=== PATIENT | female | born 1940 | race Two or more races ===

== ENCOUNTER 2025-04-07 12:00 | Emergency (ER) | payer OTHER ==
[~2025-04-07] VITALS: Ht 165.1 cm; Wt 86.2 kg
[2025-04-07] MEDS ORDERED: AVAPRO300 MG PO (15:31)
[2025-04-07] MEDS ORDERED: SYNTHROID112 MCG PO (15:31)
[2025-04-07] MEDS ORDERED: METFORMIN HCL1000 M2 (15:32)
[2025-04-07] MEDS ORDERED: KETOROLAC TROMETHAMINE 30 MG VIAL IV ONE (16:00)
[2025-04-07] MEDS ORDERED: DIPHENHYDRAMINE HCL 50 MG/ML VIAL 1ML IV ONE (16:00)
[2025-04-07] MEDS ORDERED: 0.9 % SODIUM CHLORIDE 1,000 ML IV SCH (16:00)
[2025-04-07] MEDS ORDERED: METOCLOPRAMIDE HCL 10 MG in DEXTROSE 5 % IN WATER 50 ML IV ONE (16:00)
[2025-04-07] MEDS ORDERED: KETOROLAC TROMETHAMINE 30 MG VIAL ONE (17:54)
[2025-04-07] MEDS ORDERED: DIPHENHYDRAMINE HCL 50 MG/ML VIAL 1ML ONE (17:54)
[2025-04-07] MEDS ORDERED: METOCLOPRAMIDE HCL 5 MG/ML VIAL ONE (17:54)
[2025-04-07 18:49] LABS: BASO % 0.6 % (0.1-1.2); EOS # 0.09 (0.04-0.54); EOS % 1.7 % (0.7-7.0); LYMPH # 1.39 (1.18-3.74); LYMPH % 26.7 % (19.3-53.1); MEAN PLATELET VOLUME 11.60 fl (9.4-12.4); MONO # 0.40 (0.24-0.82); MONO % 7.7 % (4.7-12.5); NEUT # 3.29 (1.56-6.13); NEUT % 63.1 % (34.0-71.1); RED CELL DISTRIBUTION WIDTH 13.0 % (11.6-14.4)
[2025-04-07 19:30] LABS: ALT/SGPT 12.0 U/L (12-78); AST/SGOT 21.0 U/L (15-37); BILIRUBIN TOTAL 0.88 mg/dL (0.3-1.2); BUN CREA RATIO 23.0 (7.0-25.0); CREATININE SERUM 0.75 mg/dL (0.55-1.02); GFR 73.27; GLOBULINA 4.0 G/DL (2.4-3.5); OSMOLALITY SERUM 298.0 MOSM/KG (275-295)
[2025-04-07 19:35] LABS: GLUCOSE FASTING 212.0 mg/dL (65-100)
[2025-04-08 00:43] LABS: URINE APPEARANCE Clear; URINE BILIRRUBIN Small (NEGATIVE); URINE BLOOD Negative; URINE COLOR Dark Yellow; URINE GLUCOSE Negative (NEGATIVE); URINE KETONE Trace (NEGATIVE); URINE LEUKOCYTE Small; URINE NITRATE Negative; URINE PROTEIN Trace (NEGATIVE); URINE UROBILINOGEN 1.0 E.U./dl
[2025-04-08 00:47] LABS: URINE BACTERIA 893.3 uL (0.0-1933); URINE EPITHELIAL CELLS 24.6 uL (0.0-38.8); URINE RBC 12.1 uL (0.0-20.8); URINE WBC 22.3 uL (0.0-23.2)
[2025-04-08 01:05] LABS: URINE CAST > 21.83 uL (0.0-1.40)
[2025-04-08 01:06] LABS: URINE MUCUS MODERATE
[2025-04-08] MEDS ORDERED: DOLOGESIC-DF 51 EACH PO (04:16)
== END 2025-04-08 07:05 | disposition home or self-care (01) ==
LOC: ER 12:01
PROVIDERS: General Practice
DX: R51.9 Headache, unspecified (principal); J45.901 Unspecified asthma with (acute) exacerbation; I10 Essential (primary) hypertension; E03.8 Other specified hypothyroidism; E11.9 Type 2 diabetes mellitus without complications; Z79.84 Long term (current) use of oral hypoglycemic drugs; Z88.6 Allergy status to analgesic agent
CPT/HCPCS: 36415; 70450; 96365; 96366; 99284; J1200; J1885; J2765; J7030